=== PATIENT | female | born 1985 | race Caucasian/White ===

== ENCOUNTER 2023-07-04 21:55 | Emergency (ER) | payer BC ==
[2023-07-04] MEDS ORDERED: KETOROLAC 30 MG/ML INJ ONE (22:44)
[2023-07-04] MEDS ORDERED: ONDANSETRON 4 MG/2 ML VIAL ONE (22:44)
[2023-07-04] MEDS ORDERED: NA CHLORIDE 0.9% 1,000 ML ONE (22:45)
[2023-07-04] MEDS ORDERED: FAMOTIDINE 20 MG/2 ML VIAL IV ONE (22:45)
[2023-07-04 23:18] LABS: Specific Gravity 1.012 (1.005-1.030)
[2023-07-04 23:36] LABS: Specific Gravity 1.012 (1.005-1.030); Sqamous Epithelial <5 /HPF (None Seen); Urine Bacteria None Seen /HPF (<20); Urine Bilirubin NEGATIVE (Negative); Urine Blood Trace (Negative); Urine Clarity Clear (Clear); Urine Color Colorless (Yellow); Urine Culture Reflex Order NOT NEEDED; Urine Glucose NEGATIVE (Negative); Urine Ketones 1+ (Negative); Urine Microscopic Reflex YN ORDER UMIC; Urine Nitrite NEGATIVE (Negative); Urine Protein NEGATIVE (Negative); Urine RBC <5 /HPF (None Seen); Urine Urobilinogen Normal (Normal); Urine WBC None Seen /HPF (<5)
[2023-07-04 23:39] LABS: Absolute Eosinophils 0.1 K/uL (0-0.5); Absolute Lymphocytes (CBC) 2.8 K/uL (0.7-4.9); Absolute Monocytes 0.6 K/uL (0.1-1.3); Absolute Neutrophil 5.5 K/uL (1.8-8.0); Basophils % 0.5 % (0-1.3); Eosinophils % 0.7 % (0-4.4); Hematocrit 37.8 % (36.0-45.0); Hemoglobin 12.7 g/dL (12.0-15.0); Lymphocytes % 30.6 % (15.3-44.8); MCH 29.3 pg (27.0-35.0); MCHC 33.5 g/dL (32.0-36.0); MCV 87.7 fL (80-100); Monocytes % 6.7 % (3.3-12.3); Neutrophils % 61.5 % (41.7-73.7); Platelets 226 thou/uL (152-406); RBC Red Blood Cell Count 4.32 M/uL (3.86-4.86); Red Cell Distribution Width 13.2 % (12.1-15.2)
[2023-07-04 23:55] LABS: Albumin 4.2 g/dL (3.4-5.0); Albumin/Globulin Ratio 1.1 (1.1-1.8); Anion Gap 10.9 mEq/L (5.0-15.0); Bilirubin Total 0.3 mg/dL (0.2-1.0); Globulin 3.7 g/dL (2.3-3.5); Potassium 2.9 mEq/L (3.5-5.1); Protein, Total 7.9 g/dL (6.4-8.2)
--- NOTE | 2023-07-05 00:54 | ER ---
Nurse's Notes [facility] Name: Joy Landeros Age: 37 yrs Sex: Female : 1985 Arrival Date: 07/04/2023 Time: 21:55 Bed 7 Private MD: Diagnosis: Abdominal pain, Generalized;Hypokalemia Presentation: 07/03 22:32 Chief complaint: Patient states: LUQ ABD pain starting Wednesday with nausea. Coronavirus km8 screen: Client denies travel out of the [place] in the last 14 days. Ebola Screen: No symptoms or risks identified at this time. Initial Sepsis Screen: Does the patient meet any 2 criteria? No. Patient's initial sepsis screen is negative. Does the patient have a suspected source of infection? No. Patient's initial sepsis screen is negative. Risk Assessment: Do you want to hurt yourself or someone else? Patient reports no desire to harm self or others. Onset of symptoms was July 02, 2023. 22:32 Method Of Arrival: Ambulatory km8 22:32 Acuity: CLINT 3 km8 Triage Assessment: 22:32 General: Appears in no apparent distress. uncomfortable, Behavior is cooperative, km8 appropriate for age, anxious. Pain: Complains of pain in abdomen Pain currently is 2 out of 10 on a pain scale. at worst was 10 out of 10 on a pain scale. EENT: No signs and/or symptoms were reported regarding the EENT system. Neuro: Level of Consciousness is awake, alert, obeys commands, Oriented to person, place, time, situation. Cardiovascular: Denies chest pain, shortness of breath, Patient's skin is warm and dry. Respiratory: Airway is patent Respiratory effort is even, unlabored, Respiratory pattern is regular, symmetrical. GI: Abdomen is non-distended, Reports upper abdominal pain, nausea. : No signs and/or symptoms were reported regarding the genitourinary system. Derm: No signs and/or symptoms reported regarding the dermatologic system. Musculoskeletal: No signs and/or symptoms reported regarding the musculoskeletal system. Range of motion: intact in all extremities. 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 - Infectious Disease History:: Denies. - Social history:: Smoking status: Patient denies any tobacco usage or history of. Patient uses alcohol, only on a social basis. Patient/guardian denies using street drugs. Screenin:59 [facility] ED Fall Risk Assessment (Adult) History of falling in the last 3 months, lg3 including since admission No falls in past 3 months (0 pts) Confusion or Disorientation No (0 pts) Intoxicated or Sedated No (0 pts) Impaired Gait No (0 pts) Mobility Assist Device Used No (0 pt) Altered Elimination No (0 pt) Score/Fall Risk Level 0 - 2 = Low Risk Oriented to surroundings, Maintained a safe environment, Educated pt \T\ family on fall prevention, incl call for assistance when getting out of bed, Assessed \T\ reinforced patient's understanding of fall precautions. Abuse screen: Denies threats or abuse. Denies injuries from another. Nutritional screening: No deficits noted. Tuberculosis screening: No symptoms or risk factors identified. Assessment: 22:59 General: Appears in no apparent distress. comfortable, Behavior is calm, cooperative. lg3 Pain: Complains of pain in left upper quadrant Pain does not radiate. Neuro: No deficits noted. Saunders Agitation-Sedation Scale (RASS): 0 - Alert and Calm Level of Consciousness is awake, alert, obeys commands, Oriented to person, place, time, situation. Cardiovascular: No deficits noted. Denies chest pain, shortness of breath, Capillary refill < 3 seconds Clubbing of nail beds is absent JVD is absent Patient's skin is warm and dry. Respiratory: No deficits noted. Airway is patent Respiratory effort is even, unlabored, Respiratory pattern is regular, symmetrical. GI: Abdomen is round non-distended, Bowel sounds present X 4 quads. Abd is soft X 4 quads Abdomen is tender to palpation in left upper quadrant. : No deficits noted. No signs and/or symptoms were reported regarding the genitourinary system. EENT: No deficits noted. No signs and/or symptoms were reported regarding the EENT system. Derm: No deficits noted. No signs and/or symptoms reported regarding the dermatologic system. Skin is intact, is healthy with good turgor, Skin is dry, Skin is normal, Skin temperature is warm. Musculoskeletal: No deficits noted. No signs and/or symptoms reported regarding the musculoskeletal system. Circulation, motion, and sensation intact. Range of motion: intact in all extremities. 07/04 00:57 Reassessment: Patient appears in no apparent distress at this time. Patient and/or lg3 family updated on plan of care and expected duration. Pain level reassessed. Patient is alert, oriented x 3, equal unlabored respirations, skin warm/dry/pink. Patient states feeling better. Vital Signs: 07/03 22:32 BP 136 / 91; Pulse 89; Resp 16; Temp 97.3; Pulse Ox 100% on R/A; Weight 63.5 kg (R); km8 Height 5 ft. 1 in. ; Pain 2/10; 07/04 00:57 BP 131 / 87; Pulse 84; Resp 16 S; Temp 97.5; Pulse Ox 100% on R/A; lg3 07/03 22:32 Body Mass Index 26.45 (63.50 kg, 154.94 cm) [facility] 07/03 22:32 Pain Scale: Adult [facility] ED Course: 07/03 21:58 Patient arrived in ED. ra3 21:59 Vandana Parker FNP-C is [facility]. kb 21:59 Te Gomez MD is Attending Physician. kb 22:32 Arm band placed on right wrist. km8 22:33 Triage completed. km8 22:54 Inserted saline lock: 20 gauge in left antecubital area, using aseptic technique. Blood pm6 collected. 22:59 Radha Mckay, RN is Primary Nurse. lg3 22:59 Patient has correct armband on for positive identification. Placed in gown. Bed in low lg3 position. Call light in reach. Side rails up X 1. Client placed on continuous cardiac and pulse oximetry monitoring. NIBP monitoring applied. Door closed. Noise minimized. Warm blanket given. 07/04 00:31 CT Abd/Pelvis - IV Contrast Only In Process Unspecified. EDMS 01:33 No provider procedures requiring assistance completed. IV discontinued, intact, lg3 bleeding controlled, No redness/swelling at site. Pressure dressing applied. Administered Medications: 07/03 23:05 Drug: NS 0.9% IV 1000 ml IV at 1 bolus Per protocol; 1000 mL bolus Route: IV; Rate: 1 lg3 bolus; Site: left antecubital; 07/04 00:58 Follow up: IV Status: Completed infusion; IV Intake: 1000ml lg3 07/03 23:05 Drug: Famotidine IVP 20 mg IVP once; dilute with 10 mL 0.9% NaCl; give over 2 minutes lg3 Route: IVP; Site: left antecubital; 07/04 00:58 Follow up: Response: No adverse reaction lg3 07/03 23:05 Drug: Ondansetron IVP 4 mg IVP once; over 2 minutes Route: IVP; Site: left antecubital; lg3 07/04 00:58 Follow up: Response: No adverse reaction lg3 07/03 23:07 Drug: TORadol - Ketorolac IVP 15 mg IVP once Route: IVP; Site: left antecubital; lg3 07/04 00:58 Follow up: Response: No adverse reaction lg3 01:08 Drug: Potassium PO Effervescent Tablet 50 mEq PO once; dissolve in 4 ounces of water or lg3 juice Route: PO; 01:08 Follow up: Response: No adverse reaction lg3 Medication: 01:34 VIS not applicable for this client. lg3 Intake: 00:58 IV: 1000ml; Total: 1000ml. lg3 Outcome: 00:54 Discharge ordered by MD. barr 01:33 Discharged to home ambulatory, lg3 01:33 Condition: stable 01:33 Discharge instructions given to patient, Instructed on discharge instructions, follow up and referral plans. medication usage, Demonstrated understanding of instructions, follow-up care, medications, 01:34 Patient left the ED. lg3 Signatures: Dispatcher [employer] EDMS Vandana Parker, KIKE YANG-Radha Whitfield RN RN lg3 Katharine Morrell, GILBERT RN km8 Lurdes Decker 3 Lindsay Urbano 6
--- NOTE | 2023-07-05 00:54 | EDPHYS ---
Physician Documentation [facility] Name: Joy Landeros Age: 37 yrs Sex: Female : 1985 Arrival Date: 07/04/2023 Time: 21:55 Bed 7 Private MD: ED Physician Te Gomez HPI: 07/03 22:18 This 37 yrs old Female presents to ER via Unassigned with complaints of Abdominal Pain, kb Back Pain, General Weakness, Decreased Appetite. 22:18 Pt is a 37 year old female who presents for abd pain that started 3 days ago. Reports kb nausea and low back pain as well. Decreased appetite. Denies fever. Denies urinary symptoms. . 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 - Infectious Disease History:: Denies. - Social history:: Smoking status: Patient denies any tobacco usage or history of. Patient uses alcohol, only on a social basis. Patient/guardian denies using street drugs. ROS: 22:18 Constitutional: As per HPI kb Exam: 22:18 Constitutional: This is a well developed, well nourished patient who is awake, alert, kb and in no acute distress. Head/Face: Normocephalic, atraumatic. ENT: Moist Mucous membranes Cardiovascular: Regular rate Respiratory: Respirations even and unlabored. No increased work of breathing. Talking in full sentences Abdomen/GI: Soft, non-tender. No distention Skin: Warm, dry with normal turgor. Normal color. MS/ Extremity: Pulses equal, no cyanosis. Neurovascular intact. Full, normal range of motion. Neuro: Awake and alert, GCS 15, oriented to person, place, time, and situation. Moves all extremities. Normal gait. Vital Signs: 22:32 BP 136 / 91; Pulse 89; Resp 16; Temp 97.3; Pulse Ox 100% on R/A; Weight 63.5 kg (R); km8 Height 5 ft. 1 in. ; Pain 2/10; 07/04 00:57 BP 131 / 87; Pulse 84; Resp 16 S; Temp 97.5; Pulse Ox 100% on R/A; lg3 07/03 22:32 Body Mass Index 26.45 (63.50 kg, 154.94 cm) 8 07/03 22:32 Pain Scale: Adult km8 MDM: 07/03 21:59 Patient medically screened. kb 07/04 00:34 Data reviewed: vital signs, nurses notes. kb 00:35 Differential diagnosis: appendicitis, diverticulitis, non-specific abd pain, urinary kb tract infection. 00:53 Counseling: I had a detailed discussion with the patient and/or guardian regarding the kb historical points, exam findings, and any diagnostic results supporting the discharge/admit diagnosis, lab results, radiology results, the need for outpatient follow up, a family practitioner, a cw operator, to return to the emergency department if symptoms worsen or persist or if there are any questions or concerns that arise at home. 00:53 ED course: At bedside to reassess patient. Patient remains awake, alert and at baseline kb mentation. Patient appears stable. Patient exhibits no visible signs of distress. Patient respirations even and unlabored. I discussed patient's diagnosis, differential diagnosis, expected course of illness, at home recommendations and strict return precautions. I advised patient to follow-up with PCP in 2 to 3 days. I explained all diagnostic results with the patient and answered all questions that patient had regarding the most likely diagnosis. I emphasized the need for close outpatient follow-up and care from primary care provider/specialist and went through careful and detailed return precautions with patient. Patient expressed full understanding of such and agrees with plan for discharge today. Feel patient is stable and appropriate for discharge and ongoing management of condition at home at this time.. 07/03 22:22 Order name: CBC with Diff; Complete Time: 23:53 kb 07/03 22:22 Order name: CMP; Complete Time: 23:56 kb 07/03 22:22 Order name: Lipase; Complete Time: 23:56 kb 07/03 22:22 Order name: Urinalysis w/ reflexes; Complete Time: 23:39 kb 07/03 22:24 Order name: Test, Urine; Complete Time: 23:39 kb 07/03 22:22 Order name: CT Abd/Pelvis - IV Contrast Only kb 07/03 22:22 Order name: IV Saline Lock; Complete Time: 22:52 kb 07/03 22:22 Order name: Labs collected and sent; Complete Time: 22:52 kb Administered Medications: 07/03 23:05 Drug: NS 0.9% IV 1000 ml IV at 1 bolus Per protocol; 1000 mL bolus Route: IV; Rate: 1 lg3 bolus; Site: left antecubital; 07/04 00:58 Follow up: IV Status: Completed infusion; IV Intake: 1000ml lg3 07/03 23:05 Drug: Famotidine IVP 20 mg IVP once; dilute with 10 mL 0.9% NaCl; give over 2 minutes lg3 Route: IVP; Site: left antecubital; 07/04 00:58 Follow up: Response: No adverse reaction lg3 07/03 23:05 Drug: Ondansetron IVP 4 mg IVP once; over 2 minutes Route: IVP; Site: left antecubital; lg3 07/04 00:58 Follow up: Response: No adverse reaction lg3 07/03 23:07 Drug: TORadol - Ketorolac IVP 15 mg IVP once Route: IVP; Site: left antecubital; lg3 07/04 00:58 Follow up: Response: No adverse reaction lg3 01:08 Drug: Potassium PO Effervescent Tablet 50 mEq PO once; dissolve in 4 ounces of water or lg3 juice Route: PO; 01:08 Follow up: Response: No adverse reaction lg3 Disposition: 06:30 Co-signature as Attending Physician, Te Gomez MD I agree with the assessment sp4 and plan of care. I reviewed the patient's care provided by the Advanced Practice Provider and agree with the diagnosis and treatment plan. Disposition Summary: 07/05/23 00:54 Discharge Ordered Notes: Location: Home kb Condition: Stable kb Diagnosis - Abdominal pain, Generalized kb - Hypokalemia kb Followup: kb - With: Emergency Department - When: As needed - Reason: Worsening of condition Followup: kb - With: Private Physician - When: 2 - 3 days - Reason: Recheck today's complaints, Continuance of care, Re-evaluation by your physician Discharge Instructions: - Discharge Summary Sheet kb - Abdominal Pain, Adult, [id number] kb - Hypokalemia kb Forms: - Medication Reconciliation Form kb - Thank You Letter kb - Antibiotic Education kb - Prescription Opioid Use kb - Patient Portal Instructions kb - Leadership Thank You Letter kb Prescriptions: - dicyclomine 20 mg Oral tablet - take 1 tablet ORAL route 4 times per day As needed; 16 tablet; Refills: 0, kb Product Selection Permitted Signatures: Dispatcher [employer] EDVandana Gandara, Radha Cho RN RN lg3 Te Gomez MD MD sp4 Katharine Morrell RN RN km8
[2023-07-05] MEDS ORDERED: POTASSIUM 25 MEQ EFFERV TAB ONE (00:56)
[2023-07-05 02:17] VITALS: BP 131/87; TEMP 97.5; O2SAT 100
--- NOTE | 2023-07-05 11:20 | RAD REPORT ---
EXAM DESCRIPTION: CT - Abdomen Pelvis W Contrast - 07/05/2023 6:07 am CLINICAL HISTORY: The patient is 37 years old and is Female; LUQ PAIN, nausea TECHNIQUE: Axial computed tomography images of the abdomen and pelvis with intravenous contrast. S agittal and coronal reformatted images were created and reviewed. This CT exam was performed using one or more of the following dose reduction techniques: automated exposure control, adjustment of t he mA and/or kV according to patient size, and/or use of iterative reconstruction technique. COMPARISON: No relevant prior studies available. FINDINGS: LUNG BASES: Unremarkable. No mass. No consolidation. ABDOMEN: LIVER: Unremarkable. No mass. GALLBLADDER AND BILE DUCTS: The gallbladder is distended. No calcified gallstones or ductal dilat ation is seen. PANCREAS: No ductal dilation. No mass. SPLEEN: Unremarkable. ADRENALS: Unremarkable. No mass. KIDNEYS AND URETERS: Unremarkable. The kidneys enhance symmetrically. No obstructing renal or ure teral calculus is seen. No hydronephrosis or hydroureter. No perinephric fluid or stranding. STOMACH AND BOWEL: The stomach is decompressed. The small bowel is normal in caliber. Stool is pr esent throughout the colon. There is no mucosal thickening or evidence of obstruction. PELVIS: APPENDIX: The appendix is normal in caliber without surrounding inflammation. BLADDER: The bladder is incompletely distended. REPRODUCTIVE: Unremarkable as visualized. ABDOMEN and PELVIS: INTRAPERITONEAL SPACE: Unremarkable. No free air. No significant fluid collection. 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 Vertebral body heights and alignment are maintained. There is no acute fracture. SOFT TISSUES: Bilateral breast implants are partially visualized. VASCULATURE: Calcified phleboliths are present within the pelvis. No abdominal aortic aneurysm. LYMPH NODES: Unremarkable. No enlarged lymph nodes. IMPRESSION: No acute findings on this contrasted CT of the abdomen and pelvis to explain the patient 's symptoms. Electronically signed by: Cely Goodwin MD 07/05/2023 12:44 AM CDT Due to temporary technical issues with the PACS/Fluency reporting system, reports are being signed by the in house radiologist without review as a courtesy to ensure prompt reporting. The interpreting r adiologist is fully responsible for the content of the report.
== END 2023-07-05 01:34 | disposition home or self-care (01) ==
LOC: ER 21:55
DX: R10.84 Generalized abdominal pain (principal); E87.6 Hypokalemia; Z98.82 Breast implant status; Z88.1 Allergy status to other antibiotic agents
CPT/HCPCS: 96361; 85025; 81001; 36415; 81025; 83690; 80053; 74177; 96375; 96374; 99284; Q9967; J2405; J7030

== ENCOUNTER 2024-06-26 13:11 | Emergency (ER) | payer BC ==
--- OUTSIDE RECORDS SUMMARY | 2024-06-26 13:14 | XMS REPORT | Continuity of Care Document ---
Author Name Unknown Address [address] [place] [address] [facility] Address 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 Name Role Phone Reg Walters Attending Clinician Marilee vailable [email or web address] Attending Clinician Unavail able Physician, No Primary or Family Admitting Clinic devi Unavailable [email or web address] Admitting Clinician Unavail able Payers Payer Name Policy Type Policy Number Effective Date Expirati on Date Source [place] [id number] 2015 00:00:00 Allergies, Adverse Reactions, Alerts Allergy Name Allergy Type Status Severity Reaction(s) Onset Date Inactive Date Treating Clinician Comments Source cephalex in DA Active MO RASH-HIVES 10-13 00:00: 00 [facility] cefaclor DA Active U UNKNOWN 10-13 00:00: 00 [facility] Encounters Start Date/Time End Date/Time Encounter Type Admission Type Attending Clinicians Care Facility Care Department Encounter ID Source 2023-10-14 13:23:00 2023-10-14 14:20:00 Emergency EM Reg Walters [facility] [id number] 11 [facility] 2023-06-28 00:00:00 2023-06-28 00:00:00 Outpatient GC[facility]FR[facility] [id number] [facility] 2022-09-05 00:00:00 2022-09-05 00:00:00 Outpatient [email or web address] [id number] [facility] Notes Date/Time Note Provider Source 2023-10-14 14:12:00 [facility] ([facility] EMERGENCY PROVIDER REPORT REPORT#:[id number] REPORT STATUS: Signed DATE:10/14/23 TIME: 141 PATIENT: ROBBY LIZARRAGA UNIT #: [id number] ROOM/BED: AGE: 37 SEX: F PCP PHYS: No Primary or Family Physician SERVICE AUTHOR: Reg Walters MD * ALL edits or amendments must be made on the electronic/computer document * HPI-Allergic Reaction Free Text HPI Notes Free Text HPI Notes 37-year-old female with history of hypokalemia presents with rash. Patient reports on Wednesday she felt a rash to her face which is now spread. She reports she took Benadryl on Wednesday with minimal relief. Patient does report that today preceding the symptoms she had a lot of shellfish. Reports what she has noticed pruritus after eating crawfish, but is unsure if she had a shellfish allergy. At 730 this morning patient took Claritin and 20 mg of Pepcid. Denies difficulty breathing. But does report some mild throat irritation. General Initial Greet Date/Time 10/14/23 1328 Presentation Chief Complaint Allergic reaction Review of Systems Focused Review of Systems Constitutional Denies: Fever. Respiratory Denies: Shortness of breath, Wheezing. Skin Reports: Itching, Rash. Past Medical History - Adult Stated Complaint RASH Allergies Coded Allergies: cephalexin (From KEFLEX) (Intermediate, RASH-HIVES 10/14/23) cefaclor (From CECLOR) (UNKNOWN 10/14/23) Additional Medical History HYPOK Smoking status for patients 13 years old or older: Never Smoker Physical Exam Vital Signs Vital Signs First Documented: Result Date Time Pulse Ox 100 10/13 1323 B/P 143/83 10/13 1323 B/P Mean 103 10/13 1323 O2 Delivery Room air 10/13 1323 Temp 36.8 10/13 1323 Pulse 97 10/13 1323 Resp 18 10/13 1323 Last Documented: Result Date Time Pulse Ox 100 10/13 1323 B/P 143/83 10/13 1323 B/P Mean 103 10/13 1323 O2 Delivery Room air 10/13 1323 Temp 36.8 10/13 1323 Pulse 97 10/13 1323 Resp 18 10/13 1323 Review of Vital Signs Reviewed Focused PE General/Const General/Const Awake, Alert, No acute distress, Well appearing Ears/Nose/Throat Ears/Nose/Throat Airway patent, Mucous membranes moist, Pharynx NL, No facial swelling Resp/Chest Respiratory/Chest Breath sounds NL, Breath sounds = bilat, No respiratory distress, No wheezing Cardiovascular Cardiovascular Heart rate NL, Regular rhythm, Heart sounds NL Skin Text/Dict Notes Diffuse macular erythematous rash Interpretation Diagnostics Lab Results Interpretation Results Laboratory Tests: 10/13 10/13 1350 1349 Serology SARS CoV-2 RNA Rapid MILES (Negative) Negative POC Group A Strep Rpd (Negative) Negative Re-Evaluation MDM Free Text MDM Notes Free Text MDM Notes 37-year-old female with history of hypokalemia presents with rash. Presentation most consistent Luzier reaction. Suspect mild shellfish allergy. Will give dose of Benadryl here. Discharge home with instructions continue famotidine, H1 mohamud at home in addition to steroid prescription. Referred to installment agent. Recommend PCP follow-up, return precautions provided. ED Course Medication(s) Ordered Medication(s) Ordered: Hormones And Synthetic Substit Sig/Trey Start time Last Medication Dose Route Stop Time Status Admin Methylprednisolone 125 MG X1ED STA 10/13 1357 DC 10/13 Sodium Succinate IM 10/13 1358 1404 Pharmaceutical Aids Sig/Trey Start time Last Medication Dose Route Stop Time Status Admin Sterile Water 2 ML ASDIR PRN 10/13 1400 DCD 10/13 IV 01/11 1359 1404 Patient Discharge Departure Vital Signs/Condition Vital Signs First Documented: Result Date Time Pulse Ox 100 10/13 1323 B/P 143/83 10/13 1323 B/P Mean 103 10/13 1323 O2 Delivery Room air 10/13 1323 Temp 36.8 10/13 1323 Pulse 97 10/13 1323 Resp 18 08/01 1323 Last Documented: Result Date Time Pulse Ox 100 10/13 1322 B/P 143/83 10/13 1322 B/P Mean 103 10/13 1322 O2 Delivery Room air 10/13 1322 Temp 36.8 10/13 1322 Pulse 97 10/13 1322 Resp 18 10/13 1322 All vital signs available at the time of this entry have been reviewed. Clinical Impression Clinical Impression Primary Impression: Allergic reaction Secondary Impressions: Generalized rash Disposition Decision Discharge )( Discharged to Home Yes )( Time 1412 )( Date 10/14/23 Discharge/Care Plan Counseled Regarding Diagnosis, Lab results, Prescriptions, Need for follow-up, When to return to ED (Auto) Prescriptions Current Visit Scripts predniSONE 50 MG PO DAILY predniSONE 50 MG PO DAILY #5 TABS Patient Instructions ED General Allergic Reactions Additional Instructions Continue taking 40 mg of Pepcid daily in addition to prescribed steroids and antihistamine (such as Benadryl or Claritin) daily. Referrals Provider Referral: Emily Singleton MD Follow-Up: As Needed Notes: INSURANCE FOLLOW UP SPECIALIST Address: [address] [place] [id number] Provider Group: PRIMARY CARE Follow-Up: 2-3 Days Discharge Note I have spoken with the patient and/or caregivers. I have explained the patient's condition, diagnoses and treatment plan based on the information available to me at this time. I have answered the patient's and/or caregiver's questions and addressed any concerns. The patient and/or caregivers have as good an understanding of the patient's diagnosis, condition and treatment plan as can be expected at this point. The vital signs have been stable. The patient's condition is stable and appropriate for discharge from the emergency department. The patient will pursue further outpatient evaluation with the primary care physician or other designated or consulting physician as outlined in the discharge instructions. The patient and/or caregivers are agreeable to this plan of care and follow-up instructions have been explained in detail. The patient and/or caregivers have received these instructions in written format and have expressed an understanding of the discharge instructions. The patient and/or caregivers are aware that any significant change in condition or worsening of symptoms should prompt an immediate return to this or the closest emergency department or a call to 911. at 1528 RPT #:[id number] END OF REPORT HCACL
[2024-06-26 14:27] LABS: Absolute Basophils 0.1 K/uL (0-0.5); Absolute Eosinophils 0.1 K/uL (0-0.5); Absolute Lymphocytes (CBC) 1.9 K/uL (0.7-4.9); Absolute Monocytes 0.6 K/uL (0.1-1.3); Basophils % 0.7 % (0-1.3); Eosinophils % 1.5 % (0-4.4); Hematocrit 39.2 % (36.0-45.0); Hemoglobin 13.5 g/dL (12.0-15.0); Lymphocytes % 24.9 % (15.3-44.8); MCH 29.8 pg (27.0-35.0); MCHC 34.5 g/dL (32.0-36.0); MCV 86.3 fL (80-100); MPV 8.7 fL (7.6-11.3); Monocytes % 7.6 % (3.3-12.3); Neutrophils % 65.3 % (41.7-73.7); Nucleated Red Blood Cells % 0.1 % (0-0); Platelets 232 thou/uL (152-406); RBC Red Blood Cell Count 4.54 M/uL (3.86-4.86); Red Cell Distribution Width 12.8 % (12.1-15.2)
[2024-06-26] MEDS ORDERED: NA CHLORIDE 0.9% 1,000 ML ONE (14:28)
[2024-06-26] MEDS ORDERED: MECLIZINE HCL 12.5 MG TAB ONE (14:28)
[2024-06-26 14:46] LABS: ALT/SGPT 35 U/L (13-56); AST/SGOT 21 U/L (15-37); Albumin 4.2 g/dL (3.4-5.0); Albumin/Globulin Ratio 1.1 (1.1-1.8); Alkaline Phosphatase 80 U/L (45-117); Anion Gap 8.6 mEq/L (5.0-15.0); BUN Blood Urea Nitrogen 12 mg/dL (7-18); Bicarbonate 28 mEq/L (21-32); Bilirubin Total 0.3 mg/dL (0.2-1.0); Globulin 3.7 g/dL (2.3-3.5); Glomerular Filtration Rate 85 ml/min (=/>90); Glucose Level 94 mg/dL (74-106); Magnesium 2.2 mg/dL (1.6-2.4); Potassium 3.6 mEq/L (3.5-5.1); Protein, Total 7.9 g/dL (6.4-8.2); Sodium Level 138 mEq/L (136-145)
[2024-06-26 14:50] LABS: Bilirubin Direct < 0.2 mg/dL (0-0.2); Bilirubin Indirect, Calculated 0.1 mg/dL (0.2-0.8); Troponin High Sensitivity < 3.0 pg/mL (<58.9)
--- NOTE | 2024-06-26 15:06 | RAD REPORT ---
EXAM: CT Head Brain Wo Cont HISTORY: vertigo. Dizziness COMPARISON: None TECHNIQUE: Multiple contiguous axial images were obtained for a CT of the brain without contrast. Sag ittal and coronal reformats were performed. One or more of the following dose reduction techniques were used: Automated exposure control, adjus tment of the mA and kV according to patient size, and iterative reconstruction. Unless otherwise specified, incidental findings do not require dedicated imaging follow-up. FINDINGS: No evidence of hydrocephalus, intracranial hemorrhage, or extra-axial fluid collection. The brain is normal in morphology. The calvarium is intact. The visualized paranasal sinuses and mastoid air cells are essentially clear . IMPRESSION: No evidence of acute intracranial abnormality.
--- NOTE | 2024-06-26 15:12 | RAD REPORT ---
EXAMINATION: CTA HEAD CLINICAL INDICATION: Female, 38 years old. vertigo TECHNIQUE: Axial CT images were obtained through the head after intravenous contrast utilizing angiog raphic protocol with 3D post-processing (maximum intensity projection images, volume rendered images and/or shaded surface rendered images). One or more of the following dose reduction technique s were used: Automated exposure control, adjustment of the mA and/or kV according to patient size, and/or iterative reconstruction. Unless otherwise specified, incidental findings do not require dedic ated imaging follow-up. COMPARISON: No prior exam. FINDINGS: ICA: The petrous, cavernous, and supraclinoid segments of the bilateral internal carotid arteries are normal. OG: Anterior cerebral arteries are normal bilaterally. The anterior communicating artery is patent. MCA: Middle cerebral arteries are normal bilaterally. CHEMICAL EQUIPMENT REPAIRER: Posterior cerebral arteries are normal bilaterally. Vertebrobasilar: The vertebral arteries are patent. The basilar artery is normal in appearance. 3D images confirm these findings. IMPRESSION: No evidence of large vessel occlusion or hemodynamically significant stenosis.
--- NOTE | 2024-06-26 15:16 | RAD REPORT ---
EXAMINATION: CT Neck Angio CLINICAL INDICATION: Female, 38 years old. vertigo TECHNIQUE: Axial CT images were obtained from the aortic arch to the skull base after intravenous con trast utilizing angiographic protocol. Multiplanar reformats, as well as 3D post-processing (maximum intensity projection images, volume rendered images and/or shaded surface rendered images) w ere generated and reviewed. One or more of the following dose reduction techniques were used: Automated exposure control, adjustment of the mA and/or kV according to patient size, and/or iterativ e reconstruction. Unless otherwise specified, incidental findings do not require dedicated imaging follow-up. COMPARISON: No prior exam. FINDINGS: AORTA: The imaged aortic arch is normal. Normal three-vessel configuration of the arch. CCA: No artifact The common carotid arteries are patent and normal in caliber. ICA/ECA: Bilateral internal and external carotid arteries are patent. There is no significant interna l carotid artery stenosis. VERTEBRAL: The cervical vertebral arteries are patent to the skull base. Vertebral arteries are codom inant. SOFT TISSUE: No significant neck soft tissue abnormalities. The visualized lung apices are clear. 3D images confirm these findings. IMPRESSION: No significant flow abnormality of the neck vessels is identified. NASCET criteria used to quantify ICA stenosis, with the following grading scheme: Mild 0-49% stenosis Moderate 50-69% stenosis Severe 70-99% stenosis Reference: [place] Symptomatic Carotid Endarterectomy Trial Collaborators; Bjorn MORALES, Sophia RAI, Alexsandra RB, et al. Beneficial effect of carotid endarterectomy in symptomatic patients with high-grade carotid stenosis. N Engl J Med. 1990Oct 27;325(7):445-53.
--- NOTE | 2024-06-26 16:14 | EDPHYS ---
Physician Documentation [facility] Name: Joy Landeros Age: 38 yrs Sex: Female : 1985 Arrival Date: 06/26/2024 Time: 13:11 Bed 16 Private MD: ED Physician Luis Jean HPI: 06/26 15:14 This 38 yrs old Female presents to ER via Ambulatory with complaints of Headache, rt Nausea, Dizziness. 15:14 Patient presents to the ED with intermittent dizziness, headaches, nausea for the past rt week. The symptoms do tend to be in the morning, improves throughout the day. Usually the headache is adequately relieved with Tylenol. States that the symptoms have persisted. States he tripped on urgent care about a week ago, had a negative UA, viral panel. Denies with acute complaints at this time, symptoms are moderate severity, no other aggravating relieving factors.. Historical: - Allergies: 13:28 Ceclor; cm10 13:28 Keflex; cm10 13:28 SHELLFISH; cm10 - PMHx: 13:28 None; cm10 - PSHx: 13:28 breast augmentation; section; cm10 - Immunization history:: Adult Immunizations. - Infectious Disease History:: Denies. - Social history:: Smoking status: Patient denies any tobacco usage or history of. - Family history:: not pertinent. ROS: 15:14 Constitutional: Negative for fever, chills, and weight loss, Cardiovascular: Negative rt for chest pain, palpitations, and edema, Respiratory: Negative for shortness of breath, cough, wheezing, and pleuritic chest pain, 15:14 MS/Extremity: Negative for injury and deformity, Skin: Negative for injury, rash, and discoloration, 15:14 Eyes: Positive for 15:14 Eyes: Positive for 15:14 Eyes: Positive for 2-3 beats of left going nystagmus, head impulse and test of skew negative, no visual field deficits, extraocular muscles are intact, Negative for pain, redness, 15:14 Abdomen/GI: Positive for nausea, Negative for abdominal pain, 15:14 Neuro: Positive for dizziness, headache, Exam: 15:14 Constitutional: This is a well developed, well nourished patient who is awake, alert, rt and in no acute distress. Head/Face: Normocephalic, atraumatic. ENT: Nares patent. No nasal discharge, no septal abnormalities noted. Tympanic membranes are normal and external auditory canals are clear. Oropharynx with no redness, swelling, or masses, exudates, or evidence of obstruction, uvula midline. Mucous membranes moist. Chest/axilla: Normal chest wall appearance and motion. Nontender with no deformity. No lesions are appreciated. Cardiovascular: Regular rate and rhythm with a normal S1 and S2. No gallops, murmurs, or rubs. Normal PMI, no JVD. No pulse deficits. Respiratory: Lungs have equal breath sounds bilaterally, clear to auscultation and percussion. No rales, rhonchi or wheezes noted. No increased work of breathing, no retractions or nasal flaring. Abdomen/GI: Soft, non-tender, with normal bowel sounds. No distension or tympany. No guarding or rebound. No evidence of tenderness throughout. MS/ Extremity: Pulses equal, no cyanosis. Neurovascular intact. Full, normal range of motion. 15:14 Eyes: 2-3 beats of left going nystagmus, head impulse and test of skew negative, no visual field deficits, extraocular muscles are intact. 15:14 ECG was reviewed by the Attending Physician. 15:14 Neuro: Strength and sensation intact in upper and lower extremities, no cranial nerve deficits, speech normal, no ataxia [id number], Vital Signs: 13:27 BP 123 / 85; Pulse 84; Resp 15; Temp 98.8; Pulse Ox 100% on R/A; Weight 64.41 kg; cm10 Height 5 ft. 1 in. ; Pain 2/10; 15:21 BP 131 / 79; Pulse 81; Resp 18; Pulse Ox 100% on R/A; ld1 16:46 BP 129 / 77; Pulse 78; Resp 18; Pulse Ox 100% on R/A; Pain 0/10; ld1 13:27 Body Mass Index 26.83 (64.41 kg, 154.94 cm) cm10 13:27 Pain Scale: Adult cm10 16:46 Pain Scale: Adult ld1 MDM: 13:35 Medical Screening Exam initiated rt 17:06 Differential diagnosis: Peripheral vertigo, central vertigo, electrolyte disturbance. rt Data reviewed: vital signs, lab test result(s), EKG, radiologic studies. I considered the following discharge prescriptions or medication management in the emergency department Medications were administered in the Emergency Department. See MAR. Independent interpretation of the following test(s) in the Emergency Department CT Scan: My interpretation is No intracranial hemorrhage seen on my interpretation of CT scan images. Test considered but Not performed: MRI: HI NTS exam is consistent with a peripheral vertigo, do not believe that MRI is emergently indicated. Counseling: I had a detailed discussion with the patient and/or guardian regarding the historical points, exam findings, and any diagnostic results supporting the discharge/admit diagnosis, lab results, radiology results, the need for outpatient follow up, to return to the emergency department if symptoms worsen or persist or if there are any questions or concerns that arise at home. Response to treatment: the patient's symptoms have markedly improved after treatment. 06/26 13:58 Order name: Basic Metabolic Panel; Complete Time: 14:51 rt 06/26 13:58 Order name: CBC with Diff; Complete Time: 14:51 rt 06/26 13:58 Order name: LFT's; Complete Time: 14:51 rt 06/26 13:58 Order name: Magnesium; Complete Time: 14:51 rt 06/26 13:58 Order name: Troponin HS; Complete Time: 14:51 rt 06/26 13:58 Order name: CT Head Brain wo Cont; Complete Time: 15:19 rt 06/26 13:58 Order name: CT Head Angio; Complete Time: 15:19 rt 06/26 13:58 Order name: CT Neck Angio; Complete Time: 15:19 rt 06/26 13:58 Order name: EKG; Complete Time: 13:59 rt 06/26 13:58 Order name: Cardiac monitoring; Complete Time: 15:12 rt 06/26 13:58 Order name: EKG - Nurse/Tech; Complete Time: 14:45 rt 06/26 13:58 Order name: IV Saline Lock; Complete Time: 14:23 rt 06/26 13:58 Order name: Labs collected and sent; Complete Time: 14:23 rt 06/26 13:58 Order name: O2 Per Protocol; Complete Time: 14:06 rt 06/26 13:58 Order name: O2 Sat Monitoring; Complete Time: 14:06 rt EC: Rate is 78 beats/min. Rhythm is regular, Normal Sinus Rhythm with No ectopy. QRS [place] rt is Normal. VA interval is normal. QRS interval is normal. QT interval is normal. No Q waves. T waves are Normal. No ST changes noted. Interpreted by me. Administered Medications: 15:11 Drug: Meclizine PO 50 mg PO once Route: PO; ld1 15:12 Drug: NS 0.9% IV 1000 ml IV at 1000 ml once; to be given as a bolus over 60 minutes ld1 Route: IV; Rate: 1000 ml; Site: left antecubital; Disposition Summary: 06/26/24 16:13 Discharge Ordered Notes: Location: Home rt Problem: new rt Symptoms: have improved rt Condition: Stable rt Diagnosis - Other peripheral vertigo, unspecified ear rt - Headache rt Followup: rt - With: Misha Rose MD - When: 2 - 3 days - Reason: Followup: rt - With: Wanda Oh MD - When: 2 - 3 days - Reason: Discharge Instructions: - Discharge Summary Sheet rt - General Headache Without Cause rt - Vertigo rt Forms: - Medication Reconciliation Form rt - Antibiotic Education rt - Prescription Opioid Use rt - Patient Portal Instructions rt - Leadership Thank You Letter rt Prescriptions: - Meclizine 25 mg Oral Tablet - take 1 tablet ORAL route every 8 hours As needed; 30 tablet; Refills: 0, rt Product Selection Permitted - Reglan 10 mg Oral tablet - take 1 tablet ORAL route every 6 hours as needed for headache/nausea; 20 rt tablet; Refills: 0, Product Selection Permitted Signatures: Dispatcher [employer] EDMS Ruthie Clemons RN RN ld1 Luis Jean MD MD rt Luz Mehta RN RN cm10 Corrections: (The following items were deleted from the chart) 13:59 13:59 Head Angio+CT.RAD.BRZ ordered. EDMS EDMS 13:59 13:59 Neck Angio+CT.RAD.BRZ ordered. EDMS EDMS
--- NOTE | 2024-06-26 16:14 | ER ---
Nurse's Notes [facility] Name: Joy Landeros Age: 38 yrs Sex: Female : 1985 Arrival Date: 06/26/2024 Time: 13:11 Bed 16 Private MD: Diagnosis: Other peripheral vertigo, unspecified ear;Headache Presentation: 06/26 13:27 Chief complaint: Patient states: Dizziness, headache, and nausea X1 week. Pt states cm10 that she was seen at urgent care and had a viral panel done and a UA and it was negative. Coronavirus screen: Client denies travel out of the [place] in the last 14 days. Ebola Screen: Patient denies travel to an Ebola-affected area in the 21 days before illness onset. Initial Sepsis Screen: Does the patient meet any 2 criteria? No. Patient's initial sepsis screen is negative. Does the patient have a suspected source of infection? No. Patient's initial sepsis screen is negative. Risk Assessment: Do you want to hurt yourself or someone else? Patient reports no desire to harm self or others. Onset of symptoms was June 26, 2024. 13:27 Method Of Arrival: Ambulatory cm10 13:27 Acuity: CLINT 3 cm10 Triage Assessment: 13:28 Headache History: Denies prior headaches. General: Appears in no apparent distress. cm10 comfortable, Behavior is calm, cooperative. Neuro: No deficits noted. Level of Consciousness is awake, alert, obeys commands, Oriented to person, place, time, situation, Appropriate for age. Respiratory: No deficits noted. Airway is patent Respiratory effort is even, unlabored, Respiratory pattern is regular, symmetrical. 13:28 Pain: Also complains of no other associated symptoms. Cardiovascular: Capillary refill ld1 < 3 seconds Patient's skin is warm and dry. 13:28 Pain: Denies pain. GI: Abdomen is flat, non-distended. : No signs and/or symptoms ld1 were reported regarding the genitourinary system. Derm: No signs and/or symptoms reported regarding the dermatologic system. Musculoskeletal: No signs and/or symptoms reported regarding the musculoskeletal system. Historical: - Allergies: 13:28 Ceclor; cm10 13:28 Keflex; cm10 13:28 SHELLFISH; cm10 - PMHx: 13:28 None; cm10 - PSHx: 13:28 breast augmentation; section; cm10 - Immunization history:: Adult Immunizations. - Infectious Disease History:: Denies. - Social history:: Smoking status: Patient denies any tobacco usage or history of. - Family history:: not pertinent. Screenin:21 [facility] ED Fall Risk Assessment (Adult) History of falling in the last 3 months, ld1 including since admission No falls in past 3 months (0 pts) Confusion or Disorientation No (0 pts) Intoxicated or Sedated No (0 pts) Impaired Gait No (0 pts) Mobility Assist Device Used No (0 pt) Altered Elimination No (0 pt) Score/Fall Risk Level 0 - 2 = Low Risk Oriented to surroundings, Hourly rounding (assess needs \T\ fall precautionary measures) done. Abuse screen: Denies threats or abuse. Denies injuries from another. Nutritional screening: No deficits noted. Tuberculosis screening: No symptoms or risk factors identified. Assessment: 15:21 General: Appears in no apparent distress. comfortable, Behavior is calm, cooperative, ld1 appropriate for age. Pain: Denies pain. Neuro: Level of Consciousness is awake, alert, obeys commands, Oriented to person, place, time, situation, Reports dizziness. Cardiovascular: Capillary refill < 3 seconds Patient's skin is warm and dry. Respiratory: Airway is patent Respiratory effort is even, unlabored. GI: Abdomen is round non-distended. : No signs and/or symptoms were reported regarding the genitourinary system. EENT: No signs and/or symptoms were reported regarding the EENT system. Derm: No signs and/or symptoms reported regarding the dermatologic system. Musculoskeletal: No signs and/or symptoms reported regarding the musculoskeletal system. 16:46 Reassessment: Patient appears in no apparent distress at this time. No changes from ld1 previously documented assessment. Patient and/or family updated on plan of care and expected duration. Pain level reassessed. Patient is alert, oriented x 3, equal unlabored respirations, skin warm/dry/pink. Vital Signs: 13:27 BP 123 / 85; Pulse 84; Resp 15; Temp 98.8; Pulse Ox 100% on R/A; Weight 64.41 kg; cm10 Height 5 ft. 1 in. ; Pain 2/10; 15:21 BP 131 / 79; Pulse 81; Resp 18; Pulse Ox 100% on R/A; ld1 16:46 BP 129 / 77; Pulse 78; Resp 18; Pulse Ox 100% on R/A; Pain 0/10; ld1 13:27 Body Mass Index 26.83 (64.41 kg, 154.94 cm) cm10 13:27 Pain Scale: Adult cm10 16:46 Pain Scale: Adult ld1 ED Course: 13:17 Patient arrived in ED. cj3 13:18 Luis Jean MD is Attending Physician. rt 13:28 Triage completed. cm10 13:28 Arm band placed on right wrist. Patient placed in an exam room, on a stretcher. cm10 13:35 Ruthie Clemons, GILBERT is Primary Nurse. ld1 14:23 Inserted saline lock: 20 gauge in left antecubital area, using aseptic technique. Blood ld1 collected. Flushed with 10 mL NS. 14:27 CT Head Brain wo Cont In Process Unspecified. EDMS 14:27 CT Head Angio In Process Unspecified. EDMS 14:28 CT Neck Angio In Process Unspecified. EDMS 14:45 EKG done, by ED staff, reviewed by Luis Jean MD. bc6 15:21 Patient has correct armband on for positive identification. Placed in gown. Bed in low ld1 position. Call light in reach. Side rails up X2. Pulse ox on. NIBP on. Door closed. Noise minimized. Warm blanket given. 15:21 No provider procedures requiring assistance completed. ld1 16:13 Misha Rose MD is Referral Physician. rt 16:13 Wanda Oh MD is Referral Physician. rt 16:48 IV discontinued, intact, bleeding controlled, No redness/swelling at site. ld1 Administered Medications: 15:11 Drug: Meclizine PO 50 mg PO once Route: PO; ld1 15:12 Drug: NS 0.9% IV 1000 ml IV at 1000 ml once; to be given as a bolus over 60 minutes ld1 Route: IV; Rate: 1000 ml; Site: left antecubital; Medication: 15:21 VIS not applicable for this client. ld1 Outcome: 16:13 Discharge ordered by MD. rt 16:47 Discharged to home ambulatory, ld1 16:47 Condition: stable 16:47 Discharge instructions given to patient, Instructed on discharge instructions, follow up and referral plans. medication usage, Demonstrated understanding of instructions, follow-up care, medications, Prescriptions given X 2, 16:48 Patient left the ED. ld1 Signatures: Dispatcher [employer] EDMS Ruthie Clemons RN RN ld1 Luis Jean MD MD rt Maria Del Rosario Farmer bc6 Luz Mehta RN RN cm10 Luly Ballard 3
[2024-06-26 16:56] VITALS: TEMP 98.8; O2SAT 100
[2024-06-26 17:00] VITALS: BP 129/77
== END 2024-06-26 16:48 | disposition home or self-care (01) ==
LOC: ER 13:11
DX: H81.399 Other peripheral vertigo, unspecified ear (principal); R51.9 Headache, unspecified; Z98.82 Breast implant status
CPT/HCPCS: 93005; 85025; 80048; 36415; 83735; 80076; 84484; 70450; 70496; 70498; 99284; Q9967; J8597; J7030